=== PATIENT | female | born 1995 | race Caucasian/White ===

== ENCOUNTER 2022-03-16 18:11 | Emergency (ER) | payer OTHER ==
[~2022-03-16] VITALS: Ht 165.1 cm; Wt 92.5 kg
[2022-03-16 18:18] VITALS: BP 122/78
--- NOTE | 2022-03-16 18:30 | NUR ---
26/F PRESENTS TO ED WITH C/O BILATERAL EAR PAIN X1 WEEK, REPORTS TAKING TYLENOL WITH NO RELIEF. DENIES COUGH, FEVERS, CHILLS.
[2022-03-16] MEDS ORDERED: OFLO5SOL27 BOTH EARS (18:37)
[2022-03-16] MEDS ORDERED: IBUP-2213 PO (18:37)
--- NOTE | 2022-03-16 18:53 | NUR ---
Patient discharged with v/s stable. Written and verbal after care instructions ABOUT OTITIS EXTERNA given and explained. Patient alert, oriented and verbalized understanding of instructions. Ambulatory with steady gait. All questions addressed prior to discharge. ID band removed. Patient advised to follow up with PMD. Rx of IBUPROFEN AND FLOXIN given. Patient educated on indication of medication including possible reaction and side effects. Opportunity to ask questions provided and answered.
== END 2022-03-16 18:52 | disposition home or self-care (01) ==
LOC: MED 18:11
DX: H60.93 Unspecified otitis externa, bilateral (principal)
CPT/HCPCS: 99283

== ENCOUNTER 2022-04-07 09:07 | Emergency (ER) | payer OTHER ==
[~2022-04-07] VITALS: Ht 165.1 cm; Wt 92.5 kg
[~2022-04-07 09:07] MED LIST: IBUP-2213 PO; OFLO5SOL27 BOTH EARS
[2022-04-07 09:21] VITALS: BP 126/85
--- NOTE | 2022-04-07 09:26 | NUR ---
OMERO. HANDED ON URINE CUP.
[2022-04-07] MEDS ORDERED: NACL 0.9% 1,000 ML IV ONE (09:40)
[2022-04-07] MEDS ORDERED: ONDANSETRON 4 MG ODT PO ONE (09:40)
[2022-04-07] MEDS ORDERED: DICYCLOMINE 10 MG CAP PO ONE (09:40)
[2022-04-07] MEDS ORDERED: ALUMINUM HYD/MAG/SIMETHICONE 30 ML UDC PO ONE (09:40)
--- NOTE | 2022-04-07 09:42 | NUR ---
BIB FAMILY C/O 08/22 GENARALIZED ABD PAIN, N/V/D X 3 DAYS.PMH: GALL BLADDER REMOVAL, OVARIAN SURGERY.ABDOMEN SOFT. SKIN IS PINK/WARM/DRY; AAOX4 WITH EVEN AND STEADY GAIT; LUNGS CLEAR BL; HR EVEN AND REGULAR; PT DENIES ANY FEVER, CP, SOB, OR COUGH AT THIS TIME
[2022-04-07 09:54] LABS: APPEARANCE,URINE CLEAR (CLEAR); BILIRUBIN,URINE 1+ (NEGATIVE); BLOOD, URINE 3+ (NEGATIVE); COLOR,URINE YELLOW (YELLOW); LEUKOCYTE ESTERASE ,URINE TRACE (NEGATIVE); NITRITE, URINE POSITIVE (NEGATIVE); PH,URINE 5.5 (5.0-9.0); UGLUCOSE NEGATIVE (NEGATIVE)
[2022-04-07] MEDS ORDERED: LOPERAMIDE 2 MG CAP PO ONE (09:55)
[2022-04-07 10:08] LABS: BASOPHILS % (AUTO) 0.3 % (0.0-2.0); EOSINOPHILS # (AUTO) 0.1 K/uL (0-0.4); EOSINOPHILS % (AUTO) 2.4 % (0.0-4.0); HEMATOCRIT 41.4 % (36-48); HEMOGLOBIN 13.9 g/dL (12.0-16.0); LYMPHOCYTES # (AUTO) 1.7 K/uL (2.5-16.5); LYMPHOCYTES % (AUTO) 29.8 % (20.5-51.1); MEAN CORPUSCULAR HEMOGLOBIN 29 pg (27-31); MEAN CORPUSCULAR HGB CONC 34 g/dL (33-37); MEAN CORPUSCULAR VOLUME 86.1 fL (80-94); MONOCYTES # (AUTO) 0.5 K/uL (0.8-1.0); MONOCYTES % (AUTO) 9.4 % (1.7-9.3); NEUTROPHILS # (AUTO) 3.3 K/uL (1.8-7.7); NEUTROPHILS % (AUTO) 58.1 % (42.2-75.2); PLATELET COUNT (AUTO) 318 K/uL (140-450); RED BLOOD CELL COUNT(AUTO) 4.81 MIL/uL (4.20-5.40); RED CELL DISTRIBUTION WIDTH 13.2 % (11.6-13.7); WHITE BLOOD COUNT (AUTO) 5.7 K/uL (4.8-10.8)
--- NOTE | 2022-04-07 10:21 | NUR ---
pt ambulated to er bed 4
[2022-04-07] MEDS ORDERED: FAMOTIDINE 20 MG/2 ML VIAL ONE (10:23)
[2022-04-07] MEDS ORDERED: ONDANSETRON 4 MG/2 ML VIAL ONE (10:23)
[2022-04-07] MEDS ORDERED: ONDANSETRON 4 MG/2 ML VIAL IVP ONE (10:25)
[2022-04-07] MEDS ORDERED: FAMOTIDINE 20 MG/2 ML VIAL IVP ONE (10:25)
[2022-04-07 10:27] LABS: RBC,URINE >100 /HPF (0-5); WBC,URINE 0-5 /HPF (0-5)
[2022-04-07 10:56] LABS: ALBUMIN 3.6 g/dL (3.4-5.0); ANION GAP 12.1 (8-16); ASPARTATE AMINOTRANSFERASE 52 U/L (15-37); CARBON DIOXIDE 28.3 mmol/L (21-32); CHLORIDE 102 mmol/L (98-107); CREATININE 0.7 mg/dL (0.6-1.3); GFR ARICAN-AMERICAN 128 mL/min (>90); GLUCOSE 81 mg/dL (74-106); LIPASE 140 U/L (73-393); POTASSIUM 3.4 mmol/L (3.5-5.1); SODIUM SERUM 139 mmol/L (136-145); TOTAL BILIRUBIN 0.2 mg/dL (0.0-1.0); UREA NITROGEN, BLOOD 16 mg/dL (7-18)
[2022-04-07] MEDS ORDERED: MECLIZINE 25 MG TAB PO ONE (11:45)
[2022-04-07] MEDS ORDERED: IMO2 PO (12:09)
[2022-04-07] MEDS ORDERED: FAMO-90 PO (12:09)
[2022-04-07] MEDS ORDERED: MECL-303 PO (12:09)
[2022-04-07] MEDS ORDERED: ONDA-188 SL (12:09)
[2022-04-07] MEDS ORDERED: CEPH-588 PO (12:10)
[2022-04-07 12:51] VITALS: BP 105/64
--- NOTE | 2022-04-07 12:51 | NUR ---
Patient discharged with v/s stable. Written and verbal after care instructions given and explained. Patient alert, oriented and verbalized understanding of instructions. Ambulatory with steady gait. All questions addressed prior to discharge. ID band removed. Patient advised to follow up with PMD. Rx of KEFLEX, ZOFRAN, PEPCID given. Patient educated on indication of medication including possible reaction and side effects. Opportunity to ask questions provided and answered.
== END 2022-04-07 12:51 | disposition home or self-care (01) ==
LOC: MED 09:07
DX: N30.01 Acute cystitis with hematuria (principal); R19.7 Diarrhea, unspecified; Z79.899 Other long term (current) drug therapy; Z98.890 Other specified postprocedural states
CPT/HCPCS: 36415; 74176; 80053; 81001; 81025; 83690; 85025; 96361; 96374; 96375; 99285; J2405; J3490; J8597; J7030

== ENCOUNTER 2022-08-19 22:36 | Emergency (ER) | payer OTHER ==
[~2022-08-19] VITALS: Ht 165.1 cm; Wt 86.2 kg
[~2022-08-19 22:36] MED LIST changes: +CEPH-588 PO; +FAMO-90 PO; +IMO2 PO; +MECL-303 PO; +ONDA-188 SL
[2022-08-19 22:40] VITALS: BP 137/90; PULSE 64; RESP 17; TEMP 98.1; O2SAT 99
--- NOTE | 2022-08-19 22:40 | NUR ---
TO BED AMBULATORY
--- NOTE | 2022-08-19 22:45 | NUR ---
ASSUMED CARE OF PT AT THIS TIME. PT IN POSITION OF COMFORT. SEE ASSESSMENT. Addendum: 08/20/22 at 0332 by [id number] CALL LIGHT WITHIN REACH FAMILY AT BEDSIDE.
[2022-08-19] MEDS ORDERED: IBUPROFEN 600 MG TAB PO ONE (23:05)
[2022-08-20] MEDS ORDERED: MORPHINE SULFATE 4 MG/ML SYR IM ONE (01:00)
--- NOTE | 2022-08-20 01:30 | NUR ---
PT RESTING, AWAITING CT RESULTS. DENIES ANY NEEDS AT THIS TIME. CALL LIGHT WITHIN REACH
[2022-08-20 03:55] VITALS: BP 128/82; PULSE 68; RESP 16; TEMP 98.1; O2SAT 99
--- NOTE | 2022-08-20 03:55 | NUR ---
Patient discharged with v/s stable. Written and verbal after care instructions given and explained. Patient verbalized understanding. Ambulatory with steady gait. All questions addressed prior to discharge. Advised to follow up with PMD.
== END 2022-08-20 03:55 | disposition home or self-care (01) ==
LOC: MED 22:36
DX: S09.90XA Unspecified injury of head, initial encounter (principal); Z79.899 Other long term (current) drug therapy; Y04.2XXA Assault by strike against or bumped into by another person, initial encounter; Y93.89 Activity, other specified; Y92.89 Other specified places as the place of occurrence of the external cause; Y99.8 Other external cause status
CPT/HCPCS: 70450; 96372; 99285; J2270

== ENCOUNTER 2023-05-07 23:38 | Emergency (ER) | payer OTHER ==
[~2023-05-07] VITALS: Ht 162.6 cm; Wt 88.9 kg
[2023-05-07 23:52] VITALS: BP 100/64; PULSE 113; RESP 22; TEMP 98; O2SAT 98
[2023-05-08 00:21] LABS: BASOPHILS % (AUTO) 0.3 % (0.0-2.0); EOSINOPHILS # (AUTO) 0.2 K/uL (0-0.4); EOSINOPHILS % (AUTO) 1.9 % (0.0-4.0); HEMATOCRIT 33.5 % (36-48); HEMOGLOBIN 11.6 g/dL (12.0-16.0); LYMPHOCYTES # (AUTO) 2.2 K/uL (2.5-16.5); LYMPHOCYTES % (AUTO) 23.4 % (20.5-51.1); MEAN CORPUSCULAR HEMOGLOBIN 30 pg (27-31); MEAN CORPUSCULAR HGB CONC 35 g/dL (33-37); MEAN CORPUSCULAR VOLUME 86.1 fL (80-94); MONOCYTES # (AUTO) 0.6 K/uL (0.8-1.0); NEUTROPHILS # (AUTO) 6.5 K/uL (1.8-7.7); NEUTROPHILS % (AUTO) 68.4 % (42.2-75.2); PLATELET COUNT (AUTO) 306 K/uL (140-450); RED BLOOD CELL COUNT(AUTO) 3.89 MIL/uL (4.20-5.40); RED CELL DISTRIBUTION WIDTH 14.1 % (11.6-13.7); WHITE BLOOD COUNT (AUTO) 9.5 K/uL (4.8-10.8)
[2023-05-08] MEDS: MORPHINE SULFATE 4 MG/ML SYR IVP ONE (00:27)
[2023-05-08] MEDS: NACL 0.9% 1,000 ML IV ONE (00:28)
[2023-05-08 00:31] LABS: ANION GAP 11.3 (8-16); CALCIUM 8.8 mg/dL (8.5-10.1); CARBON DIOXIDE 28.1 mmol/L (21-32); CREATININE 0.5 mg/dL (0.6-1.3); POTASSIUM 3.4 mmol/L (3.5-5.1)
[2023-05-08 02:38] VITALS: BP 112/64; PULSE 105; RESP 20; TEMP 98.2; O2SAT 98
== END 2023-05-08 02:38 | disposition home or self-care (01) ==
LOC: MED 23:38 → MMU 05-08 02:22 → UNDOADMIN 05-08 02:22 → MED 05-08 02:38
DX: R07.89 Other chest pain (principal); J45.909 Unspecified asthma, uncomplicated; Z79.899 Other long term (current) drug therapy
CPT/HCPCS: 36415; 71275; 80048; 84484; 85025; 85379; 93005; 96361; 96374; 99285; J2270; J7030; Q9967

== ENCOUNTER 2023-08-30 19:29 | Emergency (ER) | payer OTHER ==
[~2023-08-30] VITALS: Ht 165.1 cm; Wt 79.8 kg
[2023-08-30 19:33] VITALS: BP 127/71; PULSE 69; RESP 16; TEMP 97; O2SAT 99
[2023-08-30 19:40] VITALS: O2SAT 99
[2023-08-30 20:18] LABS: BASOPHILS % (AUTO) 0.3 % (0.0-2.0); EOSINOPHILS # (AUTO) 0.3 K/uL (0-0.4); EOSINOPHILS % (AUTO) 3.2 % (0.0-4.0); HEMATOCRIT 37.6 % (36-48); HEMOGLOBIN 12.1 g/dL (12.0-16.0); LYMPHOCYTES # (AUTO) 2.1 K/uL (2.5-16.5); LYMPHOCYTES % (AUTO) 26.6 % (20.5-51.1); MEAN CORPUSCULAR HEMOGLOBIN 26 pg (27-31); MEAN CORPUSCULAR HGB CONC 32 g/dL (33-37); MEAN CORPUSCULAR VOLUME 79.2 fL (80-94); MONOCYTES # (AUTO) 0.5 K/uL (0.8-1.0); MONOCYTES % (AUTO) 5.9 % (1.7-9.3); PLATELET COUNT (AUTO) 318 K/uL (140-450); RED BLOOD CELL COUNT(AUTO) 4.75 MIL/uL (4.20-5.40); RED CELL DISTRIBUTION WIDTH 15.9 % (11.6-13.7); WHITE BLOOD COUNT (AUTO) 7.9 K/uL (4.8-10.8)
[2023-08-30 20:27] LABS: CALCIUM 9.1 mg/dL (8.5-10.1); CARBON DIOXIDE 31.5 mmol/L (21-32); CREATININE 0.7 mg/dL (0.6-1.3); POTASSIUM 3.5 mmol/L (3.5-5.1)
[2023-08-30 21:42] LABS: APPEARANCE,URINE SL CLOUDY (CLEAR); BILIRUBIN,URINE NEGATIVE (NEGATIVE); BLOOD, URINE 3+ (NEGATIVE); COLOR,URINE YELLOW (YELLOW); LEUKOCYTE ESTERASE ,URINE TRACE (NEGATIVE); NITRITE, URINE NEGATIVE (NEGATIVE); PROTEIN,URINE 1+ (NEGATIVE); UGLUCOSE NEGATIVE (NEGATIVE)
[2023-08-30 21:50] LABS: RBC,URINE 0-5 /HPF (0-5)
[2023-08-30 21:51] LABS: BACTERIA,URINE 1+ /HPF (None Seen); MUCUS,URINE None Seen /LPF (None Seen); SQUAMOUS EPITHELIAL CELL,UR 4-10 (MOD) /LPF (0-3 (FEW))
[2023-08-30] MEDS ORDERED: NITR100C7 PO (22:52)
== END 2023-08-30 22:57 | disposition home or self-care (01) ==
LOC: MED 19:29
DX: N39.0 Urinary tract infection, site not specified (principal); J45.909 Unspecified asthma, uncomplicated; Z79.1 Long term (current) use of non-steroidal anti-inflammatories (NSAID); Z79.2 Long term (current) use of antibiotics; Z79.899 Other long term (current) drug therapy
CPT/HCPCS: 36415; 76856; 80048; 81001; 81025; 85025; 87086; 99284